=== PATIENT | male | born 1955 | race Caucasian/White ===

== ENCOUNTER → 2016-07-10 | Outpatient (REF) | payer MEDICAID ==
[2016-07-12 14:16] LABS: HEPATITIS C QUANTITATION HCV Not Detected IU/mL (.)
== END ==
LOC: M LABDRAW1 11:34
PROVIDERS: ATTEND Internal Medicine Gastroenterology
DX: B18.2 Chronic viral hepatitis C (principal)

== ENCOUNTER → 2016-08-28 | Outpatient (CLI) | payer MEDICAID ==
--- NOTE | 2016-08-28 09:05 | REP ---
Clinical: Right-sided pain and swelling. Comparison: 10/24/2007 Technique: Real time mcgarry scale and color Doppler evaluation using linear high frequency transducer. Findings: The bilateral testicles are relatively normal in contour, size, echogenicity and vascularity without intratesticular mass lesion, infectious/inflammatory process, or torsion. Few bilateral testicular calcifications are appreciated. Complex septated right hydrocele versus complex epididymal cysts distend the right yari scrotum. The largest complex septated right hydrocele versus cyst measures roughly 6.1 x 3.3 by 3.0 cm. No significant left hydrocele or epididymal cysts noted. Right testicle measures 5.2 x 2.4 x 3.6 cm. Left testicle measures 5.9 x 2.3 x 2.5 cm. Impression: 1. The testicles demonstrate few scattered calcifications without further acute pathology. Which have been documented on 2008 examination. 2. Right yari scrotum is distended by complex fluid collections representing septated, multiloculated hydrocele and/or epididymal cysts. Which is essentially unchanged from 2008 examination. Signed by Artur Ac MD 08/28/2016 08:56 A
[2016-08-28 09:06] LABS: MEAN CORPUSCULAR HEMOGLOBIN 32.4 pg (27.0-33.0); MEAN CORPUSCULAR HGB CONC 34.9 g/dl (32.0-36.5); MEAN CORPUSCULAR VOLUME 92.8 fl (80.0-96.0); RED CELL DISTRIBUTION WIDTH 13.1 % (11.5-14.5)
--- NOTE | 2016-08-28 09:52 | REP ---
LIMITED PELVIC ULTRASOUND (RIGHT INGUINAL ULTRASOUND): 08/28/2016 CLINICAL HISTORY: Remote history of right inguinal hernia repair now with swelling right yari scrotum. Rule out hernia. Examination performed without and with Valsalva maneuver. Right and left sides were evaluated for comparison. Inguinal canals show no evidence of mass or bowel herniation on either side during rest or Valsalva maneuver imaging. IMPRESSION: No ultrasound evidence of inguinal hernia or mass in the region of the inguinal canal. Signed by Ramiro Melendez MD 08/28/2016 05:38 P
== END ==
LOC: M RAD 07:14
PROVIDERS: ATTEND Family Medicine Addiction Medicine
DX: K40.90 Unilateral inguinal hernia, without obstruction or gangrene, not specified as recurrent (principal)

== ENCOUNTER → 2016-09-04 | Outpatient (CLI) | payer MEDICAID ==
[2016-09-07 14:14] LABS: HEPATITIS C QUANTITATION HCV Not Detected IU/mL (.)
== END ==
LOC: M WUC 10:42
PROVIDERS: ATTEND Internal Medicine Gastroenterology
DX: B18.2 Chronic viral hepatitis C (principal)

== ENCOUNTER → 2017-01-10 | Outpatient (CLI) | payer OTHER ==
[~2017-01-10] MED LIST: HYDR-3719 PO; NICO21DI5 TD; OXYC-404 PO; TRAM50TA2 PO
[2017-01-10 12:34] LABS: ALBUMIN 3.8 GM/DL (3.2-5.2); ANION GAP 4 MEQ/L (8-16); BLOOD UREA NITROGEN 15 MG/DL (7-18); CALCIUM LEVEL 8.6 MG/DL (8.5-10.1); CARBON DIOXIDE LEVEL 28 MEQ/L (21-32); CHLORIDE LEVEL 109 MEQ/L (98-107); CREATININE FOR GFR 0.67 MG/DL (0.70-1.30); GLOMERULAR FILTRATION RATE > 60.0 (>56); GLUCOSE, FASTING 96 MG/DL (70-105); PHOSPHORUS LEVEL 3.1 MG/DL (2.5-4.9); POTASSIUM SERUM 3.9 MEQ/L (3.5-5.1); SODIUM LEVEL 141 MEQ/L (136-145)
--- NOTE | 2017-01-10 14:20 | REP ---
Chest two views HISTORY: Preop Comparison: 11/03/2014 The lungs are clear. The heart is normal in size. The pulmonary vasculature is normal in appearance. Degenerative change is present in the thoracic spine. IMPRESSION: No acute disease. Signed by Mark Navarro MD 01/10/2017 02:11 P
--- NOTE | 2017-01-10 22:58 | ECGEPIP ---
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
== END ==
LOC: M LAB 11:27
PROVIDERS: ATTEND Dentist Oral and Maxillofacial Surgery
DX: Z01.818 Encounter for other preprocedural examination (principal); K02.9 Dental caries, unspecified

== ENCOUNTER 2017-01-12 07:28 | Day surgery (SDC) | payer MEDICAID, OTHER ==
[~2017-01-12] VITALS: Ht 193 cm; Wt 88.9 kg
[~2017-01-12 07:28] MED LIST changes: +LIDOCAINE 2% W/ EPINEPHRINE 1.7 ML DENTAL INJ As Ordered ONE
[2017-01-12] MEDS ORDERED: GLYCOPYRROLATE INJ 0.2 MG/ML 2 ML VIAL As Ordered ONE (10:00)
[2017-01-12] MEDS ORDERED: PROPOFOL 200 MG/20 ML VIAL As Ordered ONE (10:00)
[2017-01-12] MEDS ORDERED: dexameTHASONE 4 MG/ML 1ML VIAL (J1100) As Ordered ONE (10:00)
[2017-01-12] MEDS ORDERED: ONDANSETRON 4MG/2ML VIAL (J2405) As Ordered ONE (10:00)
[2017-01-12] MEDS ORDERED: MIDAZOLAM INJ 2 MG/2 ML VIAL (J2250) As Ordered ONE (10:00)
[2017-01-12] MEDS ORDERED: ROCURONIUM BROMIDE 50 MG/5 ML VIAL/SYRINGE As Ordered ONE (10:00)
[2017-01-12] MEDS ORDERED: fentaNYL 250 MCG/5 ML INJECTION (J3010) As Ordered ONE (10:00)
[2017-01-12] MEDS ORDERED: LIDOCAINE 2% INJ 100 MG/5 ML SDV (FOR ANES.) As Ordered ONE (10:00)
[2017-01-12] MEDS ORDERED: fentaNYL 100 MCG/2 ML INJECTION (J3010) As Ordered ONE ×2 (10:00→11:09)
[2017-01-12] MEDS ORDERED: NEOSTIGMINE 1MG/ML 5 ML SYRINGE (J2710) As Ordered ONE (10:01)
[2017-01-12] MEDS ORDERED: LIDOCAINE 2% W/ EPINEPHRINE 1.7 ML DENTAL INJ As Ordered ONE (10:15)
[2017-01-12] MEDS: fentaNYL 100 MCG/2 ML INJECTION (J3010) IV PRN ×2 (11:10→11:19)
[2017-01-12] MEDS ORDERED: METOCLOPRAMIDE INJ 10MG/2ML VIAL (J2765) IV PRN (11:15)
[2017-01-12] MEDS ORDERED: LR 1,000 ML IV SCH ×2 (11:15)
[2017-01-12] MEDS ORDERED: MEPERIDINE INJ 25 MG/ML VIAL (J2175) IV PRN (11:15)
[2017-01-12] MEDS ORDERED: ONDANSETRON 4MG/2ML VIAL (J2405) IV PRN (11:15)
[2017-01-12] MEDS ORDERED: PERCOCET 5MG/325MG TAB PO PRN (11:15)
[2017-01-12 12:05] VITALS: BP 149/80
--- NOTE | 2017-01-13 08:44 | RO ---
DATE OF PROCEDURE: 01/12/2017 PREPROCEDURE DIAGNOSES: 1. Nonrestorable carious and periodontal disease teeth numbers 4, 8, 9, 10, 13, 14, 17, 18, 29 and 30. 2. Bilateral maxillary buccal exostosis. POSTPROCEDURE DIAGNOSIS: 1. Nonrestorable carious and periodontal disease teeth numbers 4, 8, 9, 10, 13, 14, 17, 18, 29 and 30. 2. Bilateral maxillary buccal exostosis. PROCEDURE: 1. Surgical removal of teeth numbers 4, 8, 9, 10, 13, 14, 17, 18, 29 and 30. 2. Bilateral maxillary buccal exostosis removal. SURGEON: Dr. Matt Menard BAKERY DELIVERER: ANESTHESIA: General endotracheal. INDICATIONS: The patient is a 60-year-old male who presents in referral from his general dentist for multiple odontectomy in preparation for a complete upper denture versus a partial lower denture construction. The patient's past medical history is significant for back problems with degenerative joint disease, hepatitis C, torn rotator cuffs and extreme anxiety. The patient is on multiple medications. Due to the extent of the procedure, planned to be performed in the operating room under general anesthesia. DESCRIPTION OF PROCEDURE: The patient was brought to the operating room (OR) per anesthesia, placed supine upon the operating room table wherein general endotracheal anesthetic was undertaken without difficulty. After the usual sterile prep and drape for an intraoral procedure was performed, a throat pack was placed. 2% Xylocaine with 1:100,000 epinephrine was injected by way of infiltration fashion along the surgical sites, approximately 6 mL. Attention was first turned to the left mandible, teeth 17 and 18 retained roots. After a #15 blade used to make a buccal sulcular incision localized to the area of 17 and 18, periosteal elevator used to reflect the periosteum, the teeth were then elevated and removed without difficulty. Sockets were lightly curetted, the tissue was reapproximated. Attention was then turned to the left maxilla. A #15 blade was used to make a full-thickness mucoperiosteal incision carried from the area of edentulous 15 forward to the midline and then a full-thickness flap was then raised, periosteal elevator exposing the buccal bone supporting overlying teeth, and the buccal exostosis was also exposed with reflection of the buccal flap. Buccal bone support was then removed overlying the teeth as necessary for access and to mobilize them. Utilizing the Lazaro drill and copious sterile saline and then the teeth were elevated and delivered with forceps. Buccal exostosis and alveoplasty was then performed as necessary. Large buccal alveolar bone exostosis was removed with a Lazaro drill, a bone file was then was also copiously irrigated. The sockets were curetted and then the area was closed with #3-0 gut continuous interlocking suture for hemostasis. Attention was then turned to the right mandible, teeth numbers 29 and 30. Again, a #15 scalpel blade was used to make a full-thickness incision from the right external oblique ridge forward to the area of tooth 28. Full-thickness flap raised, periosteal elevator and then the Lazaro drill was used with copious sterile saline to make bone trenches on the teeth for access and to mobilize them. The teeth were then elevated and delivered, 29 and 30 removed singly with roots. The buccal bone was smoothed, sockets lightly curetted, irrigated and closed with #3-0 gut interrupted sutures for hemostasis. Attention lastly turned to the right maxilla wherein retained root of tooth 4 and the right maxillary buccal exostosis was removed, a #15 blade used again to make a full-thickness incision with distal buccal release, carried forward to the area near the midline. The buccal bone was then exposed with a periosteal elevator, tooth root was then delivered and removed and the Lazaro drill and copious sterile saline was used to reduce the buccal exostosis and perform indicated buccal alveoplasty as necessary. This area was all copiously irrigated, socket was curetted and then closed again with #3-0 gut continuous interlocking sutures for hemostasis. At the termination of the procedure, the oropharynx was inspected and found to be free of debris. Throat pack was removed, and the patient was awakened per anesthesia. The estimated blood loss was approximately 20 mL, fluids of 900 mL in crystalloid solution. Needle and sponge count was correct. The teeth were sent for identification to pathology. DISPOSITION: The patient was extubated in the operating room, taken to the recovery room breathing spontaneously in stable condition.
== END 2017-01-12 12:10 | disposition home or self-care (01) ==
LOC: M SDC 07:28
PROVIDERS: ATTEND Dentist Oral and Maxillofacial Surgery
DX: K02.9 Dental caries, unspecified (principal); M27.8 Other specified diseases of jaws; M54.9 Dorsalgia, unspecified; B18.2 Chronic viral hepatitis C; M15.0 Primary generalized (osteo)arthritis; M51.9 Unspecified thoracic, thoracolumbar and lumbosacral intervertebral disc disorder; N43.3 Hydrocele, unspecified; F12.90 Cannabis use, unspecified, uncomplicated; Z88.0 Allergy status to penicillin; Z79.899 Other long term (current) drug therapy; Z79.891 Long term (current) use of opiate analgesic; Z72.0 Tobacco use
CPT/HCPCS: 88300; D7210; D7310; D7471; D9223

== ENCOUNTER → 2017-02-21 | Outpatient (REF) | payer OTHER ==
[~2017-02-21] MED LIST changes: -LIDOCAINE 2% W/ EPINEPHRINE 1.7 ML DENTAL INJ As Ordered ONE
[2017-03-01 11:49] LABS: SUMMARY SEE SEPARATE REPORT
== END ==
LOC: M LABDRAW1 09:55
PROVIDERS: ATTEND Physical Medicine & Rehabilitation
DX: M47.892 Other spondylosis, cervical region (principal)

== ENCOUNTER → 2017-04-24 | Outpatient (REF) | payer OTHER ==
[2017-05-01 16:20] LABS: SUMMARY SEE SEPARATE REPORT
== END ==
LOC: M LAB REF 12:11
PROVIDERS: ATTEND Family Medicine Addiction Medicine
DX: G89.4 Chronic pain syndrome (principal)

== ENCOUNTER 2017-05-11 17:33 | Emergency (ER) | payer OTHER ==
[~2017-05-11] VITALS: Ht 182.9 cm; Wt 92.7 kg
[2017-05-11 17:33] VITALS: BP 145/76
[2017-05-11] MEDS ORDERED: NEUR300C PO (18:33)
[2017-05-11] MEDS ORDERED: GABA-282 PO (18:35)
== END 2017-05-11 18:53 | disposition home or self-care (01) ==
LOC: M ED 17:33
DX: M54.42 Lumbago with sciatica, left side (principal); G89.29 Other chronic pain; Z88.0 Allergy status to penicillin; F17.210 Nicotine dependence, cigarettes, uncomplicated; Z79.891 Long term (current) use of opiate analgesic

== ENCOUNTER → 2018-12-31 | Outpatient (CLI) | payer OTHER ==
[~2018-12-31] MED LIST changes: +GABA-843 PO; +NEUR300C PO; -NICO21DI5 TD; +NICO21DI6 TD
--- NOTE | 2018-12-31 18:18 | REP ---
Nickel: Trauma. Technique: Internal rotation, external rotation, and Y view of the left shoulder. Comparison: 05/12/2009. Findings: Age-related arthritic degenerative changes at the acromioclavicular joint and glenohumeral joints are appreciated. There is no evidence for acute fracture or dislocation. No subcutaneous emphysema or foreign body. Impression: Arthritic degenerative changes. No acute fracture or dislocation noted. Electronically Signed by Artur Ac MD 12/31/2018 06:09 P
--- NOTE | 2018-12-31 18:19 | REP ---
Clinical: Trauma. Technique: AP and lateral views of the left humerus. Findings: Age related arthritic changes at the shoulder and elbow joint noted. No obvious acute fracture dislocation. No subcutaneous emphysema or radiodense foreign body. Impression: No acute fracture or dislocation appreciated. Electronically Signed by Artur Ac MD 12/31/2018 06:10 P
--- NOTE | 2018-12-31 18:20 | REP ---
Clinical: Trauma. Technique: AP and angled views of the left clavicle. Findings: Arthritic changes at the acromioclavicular joint. No acute fracture dislocation. No subcutaneous emphysema or radiodense foreign body. Impression: Acute fracture or dislocation. Electronically Signed by Artur Ac MD 12/31/2018 06:12 P
== END ==
LOC: M WUC 17:48
PROVIDERS: ATTEND Physician Assistant
DX: M19.012 Primary osteoarthritis, left shoulder (principal); S40.012A Contusion of left shoulder, initial encounter; X58.XXXA Exposure to other specified factors, initial encounter; Y92.9 Unspecified place or not applicable

== ENCOUNTER 2019-01-29 08:52 | Emergency (ER) | payer OTHER ==
[~2019-01-29] VITALS: Ht 182.9 cm; Wt 95.5 kg
[2019-01-29] MEDS ORDERED: MORPHINE 4 MG/ML 1ML VIAL/SYRINGE (J2270) IV ONE ×2 (09:45→12:30)
[2019-01-29] MEDS ORDERED: ONDANSETRON 4MG/2ML VIAL (J2405) IV ONE (09:45)
[2019-01-29 10:13] LABS: BASO % 0.5 % (0.0-1.0); EOS # 0.1 10^3/uL (0.0-0.50); EOS % 1.1 % (0.0-3.0); HEMATOCRIT 45.7 % (42.0-52.0); HEMOGLOBIN 15.8 g/dl (13.5-17.5); LYMPH # 1.8 10^3/uL (1.5-4.5); LYMPH % 27.4 % (24.0-44.0); MEAN CORPUSCULAR HEMOGLOBIN 32.5 pg (27.0-33.0); MEAN CORPUSCULAR HGB CONC 34.6 g/dl (32.0-36.5); MONO # 0.4 10^3/uL (0.0-0.8); MONO % 5.8 % (0.0-5.0); NEUTROPHILS # 4.1 10^3/uL (1.8-7.7); NEUTROPHILS % 64.9 % (36.0-66.0); PLATELET COUNT, AUTOMATED 199 10^3/uL (150-450); RED BLOOD COUNT 4.86 10^6/uL (4.30-6.10); WHITE BLOOD COUNT 6.4 10^3/uL (4.0-10.0)
[2019-01-29 10:25] LABS: INR 1.01
[2019-01-29 10:26] LABS: PARTIAL THROMBOPLASTIN TIME 29.9 SECONDS (25.0-38.4)
[2019-01-29 10:34] LABS: BLOOD UREA NITROGEN 14 MG/DL (7-18); CALCIUM LEVEL 9.3 MG/DL (8.8-10.2); CARBON DIOXIDE LEVEL 26 MEQ/L (21-32); CHLORIDE LEVEL 110 MEQ/L (98-107); CREATININE FOR GFR 0.76 MG/DL (0.70-1.30); GLOMERULAR FILTRATION RATE > 60.0 (>49); GLUCOSE, FASTING 86 MG/DL (70-100); POTASSIUM SERUM 4.4 MEQ/L (3.5-5.1); SODIUM LEVEL 141 MEQ/L (136-145)
[2019-01-29 14:12] VITALS: BP 150/77
[2019-01-29] MEDS ORDERED: OXYC10TA3 PO (14:19)
--- NOTE | 2019-01-29 14:19 | REP ---
MRI of the lumbar spine without contrast Indication: Low back pain. Stool incontinence. Comparison: MRI of the lumbar spine of 10/24/2007. Technique: MRI of the lumbar spine was performed utilizing sagittal STIR, T1 and T2, and axial T1 and T2 weighted imaging. No intravenous contrast was administered. Findings: There is 3 mm retrolisthesis of L1 on L2, new since 2007. There is mild dextrocurvature of the lumbar spine. There are multilevel degenerative changes of the lumbar spine including multilevel disc space narrowing, most notably at L1-L2, L4-5 and L5 S1. There are endplate degenerative signal changes at L4-L5 and L5 S1. Vertebral body heights and remaining intervertebral disc heights are maintained. There is prominent well-defined T1 hyperintensity within the lower vertebral body, likely representing hemangioma and unchanged. The visualized spinal cord is normal. The conus medullaris terminates at the level of L1. There is partial fatty atrophy of the posterior paraspinal muscles at the level of the sacrum. Level specific observations: L1-L2: Diffuse disc bulge. Superimposed disc extrusion with 7 mm inferior migration, new since 2007. Severe bilateral neural foraminal narrowing. L2-L3: Diffuse disc bulge. L3-L4: Annular fissure. Diffuse disc bulge. Bilateral facet arthropathy, progressed. Mild narrowing of the spinal canal, new. Bilateral neural foraminal narrowing, greater on the left, similar to prior. L4-L5: Diffuse disc bulge. Bilateral facet arthropathy, progressed. Bilateral neural foraminal narrowing, greater on the left, similar to prior. L5-S1: Diffuse disc bulge, eccentric to the right. Severe bilateral neural foraminal narrowing, similar to prior. Impression: Multilevel lumbar spondylosis. Grade 1 retrolisthesis, disc bulge with superimposed disc extrusion and severe bilateral neural foraminal narrowing at L1-L2 is new since 2007. Progressive facet arthropathy with mild narrowing of the spinal canal at L3-L4 is new since 2007. Bilateral neural foraminal narrowing at L3-L4 is not significantly changed. Severe bilateral neural foraminal narrowing at L5-S1 is not significantly changed. Electronically Signed by Brennan Wetzel MD 01/29/2019 02:10 P
--- NOTE | 2019-02-02 07:55 | ED PDOC ---
Post-Departure Follow-Up bart bangura faxed formal report of mri ls spine for fu Ainsley Ortiz MD Feb 02, 2019 07:55
== END 2019-01-29 14:30 | disposition home or self-care (01) ==
LOC: M ED 08:52
DX: M54.5 Low back pain (principal); G89.29 Other chronic pain; Z72.0 Tobacco use; M47.816 Spondylosis without myelopathy or radiculopathy, lumbar region; M51.26 Other intervertebral disc displacement, lumbar region; M12.88 Other specific arthropathies, not elsewhere classified, other specified site; M99.53 Intervertebral disc stenosis of neural canal of lumbar region; Z88.0 Allergy status to penicillin; Z88.5 Allergy status to narcotic agent
CPT/HCPCS: 36415; 72148; 80048; 85025; 85610; 85730; 96374; 96375; 96376; 99284; J2270; J2405

== ENCOUNTER → 2019-04-03 | Outpatient (CLI) | payer OTHER ==
[~2019-04-03] MED LIST changes: +OXYC10TA3 PO
--- NOTE | 2019-04-03 09:40 | REP ---
Clinical: Hydrocele Comparison: 08/28/2016 Technique: Real time mcgarry scale and color Doppler evaluation using linear high frequency and curved array transducers. Findings: A complex fluid collection(s) with septations and debris again occupy the right yari scrotum measuring up to approximately 9.4 x 3.4 x 7.2 cm and is similar to prior examination suggesting complex hydrocele versus large irregular epididymal cysts. The bilateral testicles are relatively normal in echotexture and vascularity without evidence for torsion, mass, or acute infectious/inflammatory process. Subtle small testicular calcifications are again noted and unchanged along with 7 x 3 mm left epididymal head cyst. No varicoceles are identified. No left hydrocele noted. Right testicle measures 5.0 x 2.8 x 2.2 cm. Left testicle measures 4.8 x 2.8 x 2.6 cm. Impression: 1. Stable complex collection occupying the right yari scrotum similar to prior examination. Differential diagnosis again includes a complex hydrocele were large epididymal cysts. 2. The testicles are essentially stable in appearance with small scattered parenchymal calcifications. I the Electronically Signed by Artur Ac MD 04/03/2019 09:32 A
== END ==
LOC: M RAD 08:30
PROVIDERS: ATTEND Nurse Practitioner Women's Health
DX: N43.3 Hydrocele, unspecified (principal)

== ENCOUNTER → 2020-07-01 | Outpatient (CLI) | payer OTHER ==
[~2020-07-01] MED LIST changes: +GABA-282 PO; -GABA-843 PO
--- NOTE | 2020-07-01 18:37 | REP ---
INDICATION: OTHER FORMS OF DYSPNEA COMPARISON: 01/10/2017 TECHNIQUE: PA and lateral. FINDINGS: The mediastinum and cardiac silhouette are normal. The lung martinez are clear and without acute consolidation, effusion, or pneumothorax. The skeletal structures are intact and normal. IMPRESSION: No acute cardiopulmonary process. <Electronically signed by Artur Ac > 07/01/20 0132
== END ==
LOC: M RAD 12:08
PROVIDERS: ATTEND Family Medicine Addiction Medicine
DX: R06.09 Other forms of dyspnea (principal)

== ENCOUNTER 2021-08-24 22:25 | Emergency (ER) | payer OTHER ==
[~2021-08-24] VITALS: Ht 182.9 cm; Wt 97.7 kg
[2021-08-24] MEDS ORDERED: HYDR-3719 PO (23:00)
[2021-08-24] MEDS ORDERED: NS 500 ML IV ONE (23:55)
[2021-08-24] MEDS ORDERED: MECLIZINE 25 MG TABLET PO ONE (23:55)
[2021-08-25 00:56] LABS: BASO % 0.5 % (0.0-1.0); EOS # 0.1 10^3/uL (0.0-0.5); EOS % 0.6 % (0.0-3.0); HEMATOCRIT 40.3 % (42.0-52.0); HEMOGLOBIN 13.7 g/dl (13.5-17.5); LYMPH # 1.7 10^3/uL (1.5-5.0); LYMPH % 20.5 % (24.0-44.0); MEAN CORPUSCULAR HEMOGLOBIN 32.3 pg (27.0-33.0); MONO # 0.4 10^3/uL (0.0-0.8); MONO % 4.9 % (2.0-8.0); NEUTROPHILS # 5.9 10^3/uL (1.5-8.5); NEUTROPHILS % 73.3 % (36.0-66.0); PLATELET COUNT, AUTOMATED 191 10^3/uL (150-450); RED BLOOD COUNT 4.24 10^6/uL (4.30-6.10); WHITE BLOOD COUNT 8.1 10^3/uL (4.0-10.0)
[2021-08-25 01:10] LABS: INR 0.94; PARTIAL THROMBOPLASTIN TIME 31.3 SECONDS (25.9-37.0)
[2021-08-25 01:18] LABS: BLOOD UREA NITROGEN 19 MG/DL (7-18); CALCIUM LEVEL 8.8 MG/DL (8.8-10.2); CARBON DIOXIDE LEVEL 28 MEQ/L (21-32); CHLORIDE LEVEL 110 MEQ/L (98-107); CREATININE FOR GFR 0.85 MG/DL (0.70-1.30); GLOMERULAR FILTRATION RATE > 60.0 (>49); GLUCOSE, FASTING 109 MG/DL (70-100); POTASSIUM SERUM 3.9 MEQ/L (3.5-5.1); SODIUM LEVEL 142 MEQ/L (136-145)
[2021-08-25 01:45] VITALS: BP 150/72
[2021-08-25] MEDS ORDERED: MECL1TAB31 PO (02:21)
== END 2021-08-25 02:42 | disposition home or self-care (01) ==
LOC: EDUNIT# 22:25 → EDBD 22:25 → M ED 22:25
DX: R42 Dizziness and giddiness (principal); G89.29 Other chronic pain; M54.9 Dorsalgia, unspecified; H53.9 Unspecified visual disturbance; Z88.0 Allergy status to penicillin; Z88.5 Allergy status to narcotic agent; F17.210 Nicotine dependence, cigarettes, uncomplicated

== ENCOUNTER → 2021-09-05 | Outpatient (CLI) | payer OTHER ==
[~2021-09-05] MED LIST changes: +MECL1TAB31 PO
== END ==
LOC: M RAD 07:57
PROVIDERS: ATTEND Family Medicine Addiction Medicine
DX: Z12.2 Encounter for screening for malignant neoplasm of respiratory organs (principal)

== ENCOUNTER → 2023-05-21 | Outpatient (REF) | payer OTHER ==
[~2023-05-21] MED LIST changes: +MECL-209 PO; -MECL1TAB31 PO; -OXYC-404 PO; +OXYC20TA64 PO
[2023-05-21 12:52] LABS: ALBUMIN 4.2 G/DL (3.2-5.2); ALKALINE PHOSPHATASE 46 U/L (46-116); ALT/SGPT 15 U/L (7.0-40); AST/SGOT 13 U/L (<34); BILIRUBIN,TOTAL 0.4 MG/DL (0.3-1.2); BLOOD UREA NITROGEN 15 MG/DL (9-23); CALCIUM LEVEL 9.1 MG/DL (8.3-10.6); CARBON DIOXIDE LEVEL 28 MMOL/L (20-31); CHLORIDE LEVEL 107 MMOL/L (98-107); CHOLESTEROL LEVEL 145 MG/DL (<200); CHOLESTEROL RISK RATIO 3.57 (<5); CREATININE FOR GFR 0.73 MG/DL (0.70-1.30); GLOMERULAR FILTRATION RATE > 60.0 (>49); GLUCOSE, FASTING 92 MG/DL (74-106); HDL CHOLESTEROL 40.6 MG/DL (>40); LDL CHOLESTEROL 81.8 MG/DL (<100); NON-HDL-C 104.4 MG/DL; POTASSIUM SERUM 4.5 MMOL/L (3.5-5.1); SODIUM LEVEL 141 MMOL/L (136-145); TRIGLYCERIDES LEVEL 113 MG/DL (<150)
[2023-05-21 12:54] LABS: FREE T4 0.99 NG/DL (0.89-1.76); THYROID STIMULATING HORMONE 1.788 uIU/ML (0.55-4.78)
== END ==
LOC: M LAB REF 11:10
PROVIDERS: ATTEND Family Medicine Addiction Medicine
DX: R03.0 Elevated blood-pressure reading, without diagnosis of hypertension (principal)

== ENCOUNTER → 2024-02-07 | Outpatient (CLI) | payer OTHER | LOC: M WUC 13:58 | PROVIDERS: ATTEND Family Medicine Addiction Medicine | DX: M25.512 Pain in left shoulder (principal); M25.511 Pain in right shoulder ==

== ENCOUNTER → 2024-08-07 | Outpatient (CLI) | payer OTHER ==
[~2024-08-07] MED LIST changes: +GABA-1172 PO; -GABA-282 PO
== END ==
LOC: M RAD 08:28
PROVIDERS: ATTEND Family Medicine Addiction Medicine
DX: Z87.891 Personal history of nicotine dependence (principal)

== ENCOUNTER → 2024-09-02 | Outpatient (REF) | payer OTHER ==
[2024-09-02 15:12] LABS: BASO % 0.4 % (0.0-1.0); EOS # 0.1 10^3/uL (0.0-0.5); EOS % 1.1 % (0.0-3.0); HEMATOCRIT 46.1 % (42.0-52.0); HEMOGLOBIN 15.1 g/dl (13.5-17.5); LYMPH # 1.8 10^3/uL (1.5-5.0); MEAN CORPUSCULAR HEMOGLOBIN 31.4 pg (27.0-33.0); MEAN CORPUSCULAR HGB CONC 32.8 g/dl (32.0-36.5); MEAN CORPUSCULAR VOLUME 95.8 fl (80.0-96.0); MONO # 0.5 10^3/uL (0.0-0.8); MONO % 6.3 % (2.0-8.0); NEUTROPHILS # 4.8 10^3/uL (1.5-8.5); NEUTROPHILS % 66.9 % (36.0-66.0); PLATELET COUNT, AUTOMATED 215 10^3/uL (150-450); RED BLOOD COUNT 4.81 10^6/uL (4.30-6.10); WHITE BLOOD COUNT 7.1 10^3/uL (4.0-10.0)
[2024-09-02 15:17] LABS: THYROID STIMULATING HORMONE 1.059 uIU/ML (0.55-4.78)
[2024-09-02 15:18] LABS: ALBUMIN 4.1 G/DL (3.2-5.2); ALKALINE PHOSPHATASE 45 U/L (40-129); ALT/SGPT 21 U/L (7.0-40); AST/SGOT 13 U/L (<34); BILIRUBIN,TOTAL 0.4 MG/DL (0.3-1.2); BLOOD UREA NITROGEN 19 MG/DL (9-23); CALCIUM LEVEL 9.3 MG/DL (8.3-10.6); CARBON DIOXIDE LEVEL 29 MMOL/L (20-31); CHLORIDE LEVEL 109 MMOL/L (98-107); CHOLESTEROL LEVEL 157 MG/DL (<200); CHOLESTEROL RISK RATIO 3.98 (<5); CREATININE FOR GFR 0.67 MG/DL (0.70-1.30); GLOMERULAR FILTRATION RATE > 60.0 (>49); GLUCOSE, FASTING 91 MG/DL (74-106); HDL CHOLESTEROL 39.4 MG/DL (>40); LDL CHOLESTEROL 84.6 MG/DL (<100); MAGNESIUM LEVEL 2.3 MG/DL (1.8-2.4); NON-HDL-C 117.6 MG/DL; POTASSIUM SERUM 4.4 MMOL/L (3.5-5.1); SODIUM LEVEL 144 MMOL/L (136-145); TOTAL PROTEIN 7.3 G/DL (5.7-8.2); TRIGLYCERIDES LEVEL 165 MG/DL (<150)
== END ==
LOC: M LAB REF 12:54
PROVIDERS: ATTEND Nurse Practitioner Family
DX: E66.3 Overweight (principal)